=== PATIENT | female | born 1950 | race Caucasian/White ===

== ENCOUNTER 2017-07-20 10:19 | Outpatient (CLI) | payer OTHER ==
[~2017-07-20 10:19] MED LIST: MACROBID 100 M100 MG PO; ULTRACET PO
== END 2017-07-20 10:31 | disposition home or self-care (01) ==
LOC: RAD 10:19 → SONOGRAMA 10:19
DX: M12.861 Other specific arthropathies, not elsewhere classified, right knee (principal); M17.11 Unilateral primary osteoarthritis, right knee